=== PATIENT | female | born 1940 | race Hispanic/Latino ===

== ENCOUNTER 2017-07-05 18:38 | Emergency (ER) | payer OTHER ==
[2017-07-05 18:45] VITALS: BMI 25.4
[2017-07-05 18:46] VITALS: O2SAT 100
--- NOTE | 2017-07-05 20:30 | ED PDOC ---
Arrival/HPI - General Chief Complaint: Altered Mental Status Time Seen by Provider: 07/05/17 20:17 Historian: Patient, Family - History of Present Illness Narrative History of Present Illness (Text): you were treated in the ED today for hx of advanced dementia and was wondering and otherwise without any nausea/vomiting/pain/difficulty breathing/chest pain/ abdomen pain/numbness/tingling/loss of limb function/pain with urination. Time/Duration: 1-3 hours Symptom Onset: Gradual Symptom Course: Unchanged Quality: Other (no pain) Activities at Onset: Rest Context: Sitting Past Medical History - Infectious Disease Hx of Infectious Diseases: None - Psychiatric Hx Substance Use: No - Anesthesia Hx Anesthesia: No Family/Social History - Physician Review Nursing Documentation Reviewed: Yes Family/Social History: No Known Family HX Smoking Status: Unknown If Ever Smoked Hx Alcohol Use: No Hx Substance Use: No Allergies/Home Meds Allergies/Adverse Reactions: Allergies Unobtainable Allergy (Verified 07/05/17 19:54) Physical Exam Vital Signs Temp Pulse Resp BP Pulse Ox 07/05/17 18:45 98.9 F 83 18 175/95 H 100 Finger Stick Blood Glucose: 93 Medical Decision Making ED Course and Treatment: you were treated in the ED today for hx of advanced dementia and was wondering and otherwise without any nausea/vomiting/pain/difficulty breathing/chest pain/ abdomen pain/numbness/tingling/loss of limb function/pain with urination. You were otherwise breathing easily, pink moist lips,comfortable with your son, good strength/sensation, at baseline mental status, walking easily with your cane, clear lungs, no abdomen tenderness, no sign of any acute injury, no spinal tenderness, old carmen on forehead/scalp per son and old injury and walking easily with cane at baseline, no fever temp 98.9, stable heart rate 83, stable breathing rate 18, excellent oxygen level 100% room air, elevated blood pressure 175/95 which we recommend repeat in 2-3 days primary care office to determine further treatment, observation done in the ED with improvement, had a long discussion with son who stated he didn't want any work-up done and wanted to take you home as you were at your baseline mental status/comfortable without pain, counselled to monitor symptoms and thus discharged home with son1.Recommend follow-up primary care 1 day to review symptoms, referral to neurology clinic to review symptoms. 2. If any worsening pain, fever, chills, nausea, vomiting, difficulty breathing, numbness, loss of limb function, pain with urination or any medical condition then return to the ED. 07/05/17 20:30 Reassessment Condition: Re-examined, Improved Disposition/Present on Arrival - Present on Arrival Any Indicators Present on Arrival: No History of DVT/PE: No History of Uncontrolled Diabetes: No Urinary Catheter: No History of Decub. Ulcer: No History Surgical Site Infection Following: None - Disposition Have Diagnosis and Disposition been Completed?: Yes Diagnosis: Wandering Disposition: HOME/ ROUTINE Disposition Time: 20:32 Patient Plan: Discharge Patient Problems: Current Active Problems Problem Status Onset Wandering Acute Condition: IMPROVED Additional Instructions: you were treated in the ED today for hx of advanced dementia and was wondering and otherwise without any nausea/vomiting/pain/difficulty breathing/chest pain/ abdomen pain/numbness/tingling/loss of limb function/pain with urination. You were otherwise breathing easily, pink moist lips,comfortable with your son, good strength/sensation, at baseline mental status, walking easily with your cane, clear lungs, no abdomen tenderness, no sign of any acute injury, no spinal tenderness, old carmen on forehead/scalp per son and old injury and walking easily with cane at baseline, no fever temp 98.9, stable heart rate 83, stable breathing rate 18, excellent oxygen level 100% room air, elevated blood pressure 175/95 which we recommend repeat in 2-3 days primary care office to determine further treatment, observation done in the ED with improvement, had a long discussion with son who stated he didn't want any work-up done and wanted to take you home as you were at your baseline mental status/comfortable without pain, counselled to monitor symptoms and thus discharged home with son1.Recommend follow-up primary care 1 day to review symptoms, referral to neurology clinic to review symptoms. 2. If any worsening pain, fever, chills, nausea, vomiting, difficulty breathing, numbness, loss of limb function, pain with urination or any medical condition then return to the ED.
[2017-07-05 21:42] VITALS: BP 162/72; PULSE 81; RESP 17; TEMP 98.2
== END 2017-07-05 20:37 | disposition home or self-care (01) ==
LOC: ED 18:38
DX: Z91.83 Wandering in diseases classified elsewhere (principal)